=== PATIENT | female | born 1995 | race Caucasian/White ===

== ENCOUNTER 2019-04-15 10:29 | Emergency (ER) | payer OTHER ==
[~2019-04-15] VITALS: Ht 170.2 cm; Wt 63.6 kg
[2019-04-15 10:35] VITALS: BP 131/71; TEMP 99
[2019-04-15] MEDS ORDERED: ORTHO TRI-CYCLE1 TA2 PO (10:53)
[2019-04-15 11:27] VITALS: PULSE 78
== END 2019-04-15 11:26 | disposition home or self-care (01) ==
LOC: COL.ER 10:29
DX: S63.501A Unspecified sprain of right wrist, initial encounter (principal); Y92.318 Other athletic court as the place of occurrence of the external cause; Y93.68 Activity, volleyball (beach) (court)

== ENCOUNTER 2020-04-21 10:20 | Emergency (ER) | payer OTHER ==
[~2020-04-21] VITALS: Ht 170.2 cm; Wt 63.6 kg
[~2020-04-21 10:20] MED LIST: ORTHO TRI-CYCLE1 TA2 PO
[2020-04-21 10:35] VITALS: BP 123/68; TEMP 98.3
[2020-04-21 11:23] VITALS: PULSE 66
== END 2020-04-21 11:21 | disposition home or self-care (01) ==
LOC: COL.ER 10:20
DX: S67.192A Crushing injury of right middle finger, initial encounter (principal); S67.194A Crushing injury of right ring finger, initial encounter; W23.0XXA Caught, crushed, jammed, or pinched between moving objects, initial encounter